=== PATIENT | female | born 1975 | race Caucasian/White ===

== ENCOUNTER 2017-07-08 01:25 | Inpatient (IN) | payer BC ==
[~2017-07-08] VITALS: Ht 160 cm; Wt 81.6 kg
[2017-07-08 04:00] VITALS: BP 134/78
[2017-07-08] MEDS ORDERED: Morphine Sulfate 4mg/ml Inj IVP PRN (05:30)
[2017-07-08] MEDS: D5 1/2NS w/KCl 20mEq 1,000 ML IV SCH ×2 (06:19→18:28)
[2017-07-08] MEDS: Morphine Sulfate 4mg/ml Inj IVP PRN ×2 (06:21→18:14)
[2017-07-08 09:00] VITALS: BP 99/72
--- NOTE | 2017-07-08 11:50 | History & Physical ---
History and Physical History & Physicial Dicated for Dr Cortes no. [id number]. Josef Neville MD July 08, 2017 11:50
[2017-07-08 17:32] LABS: APPEARANCE,URINE CLEAR; BILIRUBIN, URINE NEGATIVE (NEGATIVE); COLOR,URINE PALE YELLOW; GLUCOSE, URINE (UA) NEGATIVE (NEGATIVE); KETONES,URINE NEGATIVE (NEGATIVE); LEUKOCYTE ESTERASE ,URINE NEGATIVE (NEGATIVE); NITRITE,URINE NEGATIVE (NEGATIVE); PH,URINE 6.5 (4.5-8.0); PROTEIN,URINE NEGATIVE (NEGATIVE); UROBILINOGEN,URINE NORMAL MG/DL (0.0-1.0)
--- NOTE | 2017-07-08 18:00 | History and Physical Report ---
DATE OF ADMISSION: 07/08/2017 CHIEF COMPLAINT: The patient is a 41-year-old white female presents with complaint of left flank pain. HISTORY OF PRESENT ILLNESS: Began on 06/24/2017. The patient noticed blood in her urine. The patient was then traveling for 1 week. The patient states she began to experience left flank pain on Saturday. The patient also had subjective fever and chills. The patient presented to [facility] emergency room on Saturday07/07/2017. The CT scan revealed a 4 mm calculus in the left distal ureter. The patient was started on ciprofloxacin at [place]. The patient is transferred to [facility] for insurance purposes. The patient is admitted with left flank pain and left renal calculus to rule out pyelonephritis. REVIEW OF SYSTEMS: CONSTITUTIONAL: The patient denies weight loss or gain. The patient complains of subjective fever and chills as above. HEENT: The patient denies ear or throat pain. The patient denies headache. CARDIOVASCULAR: The patient denies palpitations or chest pain. CHEST: The patient denies wheeze or shortness of breath. ABDOMEN: The patient complains of left flank pain as above. The patient complains of subjective nausea without vomiting. The patient denies diarrhea or constipation. GENITOURINARY: The patient complains of hematuria as above. The patient denies dysuria. NEUROMUSCULAR: The patient denies seizures or generalized weakness. PAST MEDICAL HISTORY: The patient denies. Last menstrual period stated to be 07/05/2017. PAST SURGICAL HISTORY: The patient denies. CURRENT MEDICATIONS: The patient denies. ALLERGIES: No known drug allergies. SOCIAL HISTORY: The patient is single and works in programming. The patient admits to occasional tobacco use. The patient denies alcohol use of one to two times weekly. The patient denies drug abuse. PHYSICAL EXAMINATION: VITAL SIGNS: Temperature 97.7 degrees, respirations 21, pulse 82, blood pressure 134/78. GENERAL: The patient is well-developed and well-nourished white female, in no apparent distress. HEENT: Eyes, pupils are equal and responsive to light and accommodation. Extraocular movements are intact. NECK: Supple. No lymphadenopathy. CHEST: Lungs are clear to auscultation bilaterally without wheezes or rales. CARDIOVASCULAR: Regular rhythm and rate. S1, S2 normal without murmurs, rubs, or gallops. ABDOMEN: Soft, nontender, and nondistended with positive bowel sounds. No evidence of hepatosplenomegaly. Currently, no rebound or guarding noted. EXTREMITIES: Negative for clubbing, cyanosis, or edema. RECTAL: Refused. GENITAL: Refused. NEUROLOGICAL: Cranial II through XII grossly intact without focal deficits. Motor strength is 5/5 bilaterally. Deep tendon reflexes are 2+, plantar. LABORATORY STUDIES: WBC 15.1, hemoglobin 12.9, hematocrit 37.6, platelets 343,000. Sodium 136, potassium 3.9, chloride 103, CO2 26, BUN 13, creatinine 0.71, glucose 102. A CT scan of the abdomen and pelvis revealed a 4 mm stone located in the distal left ureter. ASSESSMENT: This is a 41-year-old white female: 1. Left flank pain. 2. Left distal ureteral calculus. 3. Hematuria. 4. Fever. TREATMENT: Left flank pain/left ureteral calculus (distal). Urology consultation has been obtained with Dr. Chato Gay. The patient will be strained. Hopefully, the stone will pass on its own, as the stone is only 4 mm in diameter. We will follow recommendations of Urology. The patient may require cystoscopy and ureteroscopy. Josef Neville M.D. DR: ARPAN JOB#: [id number] CC:
[2017-07-08 20:30] VITALS: BP 116/75
[2017-07-08] MEDS ORDERED: Tamsulosin 0.4mg cap ORAL SCH (21:00)
--- NOTE | 2017-07-08 22:30 | Consultation ---
DATE OF CONSULTATION: 07/08/2017 CONSULTING PHYSICIAN: Chato Gay M.D. REFERRING PHYSICIAN: Frank Cortes M.D. REASON FOR CONSULTATION: For evaluation of renal colic. HISTORY OF PRESENT ILLNESS: This is a pleasant 41-year-old female. She experienced acute onset of left flank pain and she was taken to the [place] emergency room. She had a workup over there including laboratory studies, UA, and a CT scan, and there was a finding of a 4 mm stone of the left distal ureter. There was a mention of left ureterectasis without significant hydro. The patient was then transferred here for admission. Currently, she feels fair. She is still requiring some narcotic pain medications, but she states that her pain is improving. PAST MEDICAL HISTORY: Essentially unremarkable. OUTPATIENT MEDICATIONS: None. ALLERGIES: No known drug allergies. SOCIAL HISTORY: She is an occasional smoker. FAMILY HISTORY: Noncontributory. REVIEW OF SYSTEMS: As above. PHYSICAL EXAMINATION: GENERAL: A well-developed and well-nourished female, in no acute distress. VITAL SIGNS: Temperature is 97.9, blood pressure is 99/72, pulse 69, respirations 18. HEENT: Normocephalic. NECK: Supple. ABDOMEN: Soft. BACK: There is no CVA tenderness. EXTREMITIES: Without clubbing or cyanosis. LABORATORY DATA: The laboratories at [place] were reviewed. Her BUN is 13 and creatinine 0.71. Her UA was nitrite negative. There was greater than 25 wbc's and then 26 to 50 rbc's. Her repeat UA here earlier today was negative. DIAGNOSTIC IMAGING STUDIES: The patient had a CT scan and the report stated a 4 mm stone in the distal left ureter and moderate left ureterectasis. No significant hydro. IMPRESSION: 1. Left ureteral calculus. 2. Colic. 3. Ureterectasis, possible hydro. 4. Urinary frequency by history. 5. Hematuria. 6. Pyuria. PLAN AND DISCUSSION: As noted above, the patient did have left flank pain presumably secondary to renal colic. Her pain is slowly improving. I did talk to the patient about treatment options and at this, we will do a trial of passage with Flomax as ordered. We will strain her urine and she will be monitored clinically. If she has continued flank pain then she may need to have a procedure to extract the stone. Otherwise, she may be able to pass the stone spontaneously. Thank you Dr. Cortes for asking me to participate in this consultation. Chato Gay M.D. DR: DULCE JOB#: [id number] CC:
[2017-07-09] VITALS: BP 98/64
[2017-07-09 06:30] VITALS: BP 99/60
[2017-07-09 07:25] LABS: BASOPHILS % (AUTO) 1.4 % (0.0-2.0); EOSINOPHILS % (AUTO) 2.8 % (0.0-3.0); HEMATOCRIT 35.6 % (37.0-47.0); HEMOGLOBIN 12.1 G/DL (12.0-16.0); LYMPHOCYTES % (AUTO) 30.6 % (20.0-45.0); MEAN CORPUSCULAR VOLUME 90 FL (80-99); MONOCYTES % (AUTO) 10.6 % (1.0-10.0); NEUTROPHILS % (AUTO) 54.5 % (45.0-75.0); PLATELET COUNT 328 K/UL (150-450); RED BLOOD COUNT 3.97 M/UL (4.20-5.40); RED CELL DISTRIBUTION WIDTH 11.4 % (11.6-14.8); WHITE BLOOD COUNT 6.8 K/UL (4.8-10.8)
[2017-07-09 07:43] LABS: ANION GAP 9 mmol/L (5-15); BLOOD UREA NITROGEN 6 mg/dL (7-18); CALCIUM 9.6 MG/DL (8.5-10.1); CARBON DIOXIDE 23 MMOL/L (21-32); CHLORIDE 106 MMOL/L (98-107); CREATININE 0.8 MG/DL (0.55-1.30); PHOSPHORUS 3.2 MG/DL (2.5-4.9); POTASSIUM 4.1 MMOL/L (3.5-5.1); SODIUM 138 MMOL/L (136-145)
[2017-07-09 08:18] LABS: INR 0.9 (0.9-1.1)
[2017-07-09] MEDS: D5 1/2NS w/KCl 20mEq 1,000 ML IV SCH (08:22)
--- NOTE | 2017-07-09 10:10 | Urology Progress Note ---
Assessment/Plan Assessment/Plan 1. Left ureteral calculus. 2. Colic. 3. Ureterectasis, possible hydro. 4. Urinary frequency by history. 5. Hematuria. 6. Pyuria. pain better stone poss passed? d/w pt and she wants to go home rec to cont straining urine with outpt f/u d/w Dr. Neville Subjective Allergies: Coded Allergies: No Known Allergies (Unverified , 07/08/17) Subjective feels fair, no sig pain, wants to go home Objective Last 24 Hour Vital Signs Date Time Temp Pulse Resp B/P (MAP) Pulse Ox O2 Delivery O2 Flow Rate FiO2 07/09/17 06:30 98.1 80 19 99/60 98 Room Air 98.1 07/09/17 00:00 97.9 84 17 98/64 97 Room Air 97.9 07/08/17 20:30 97.9 76 19 116/75 98 Room Air 97.9 Intake and Output 07/08/17 07/09/17 19:00 07:00 Intake Total 2025 ml Output Total 1200 ml 1300 ml Balance -1200 ml 725 ml Intake Oral 1100 ml IV Total 925 ml Output Urine Total 1200 ml 1300 ml # Voids 3 4 Microbiology Date/Time Source Procedure Growth Status 07/08/17 15:00 Urine,Clean Catch Urine Culture - Preliminary NO GROWTH Resulted Current Medications Medications (Trade) Dose Ordered Sig/Umm Route PRN Reason Start Time Stop Time Status Last Admin Dose Admin Acetaminophen (Tylenol) 650 mg Q6H PRN ORAL Mild Pain/Temp > 100.5 07/08/17 05:30 08/07/17 05:29 Dextrose/ Electrolytes 1,000 ml @ 75 mls/hr [id number] IV 07/08/17 05:30 08/07/17 05:29 07/09/17 08:22 Morphine Sulfate (Morphine Sulfate) 2 mg Q4H PRN IVP For Pain(mild/moderate) 07/08/17 05:30 07/15/17 05:29 Morphine Sulfate (Morphine Sulfate) 4 mg Q4H PRN IVP For Pain (severe) 07/08/17 05:30 07/15/17 05:29 07/08/17 18:14 Ondansetron HCl (Zofran) 4 mg Q4H PRN IVP Nausea & Vomiting 07/08/17 05:30 08/07/17 05:29 Tamsulosin HCl (Flomax) 0.4 mg BEDTIME ORAL 07/08/17 21:00 08/07/17 20:59 07/08/17 20:57 Laboratory Tests 07/08/17 15:00: Urine Color Pale yellow, Urine Appearance Clear, Urine pH 6.5, Urine Specific [place] 1.005, Urine Protein Negative, Urine Glucose (UA) Negative, Urine Ketones Negative, Urine Occult Blood Negative, Urine Nitrite Negative, Urine Bilirubin Negative, Urine Urobilinogen Normal, Urine Leukocyte Esterase Negative 07/09/17 06:30: White Blood Count 6.8, Red Blood Count 3.97L, Hemoglobin 12.1, Hematocrit 35.6L , Mean Corpuscular Volume 90, Mean Corpuscular Hemoglobin 30.5, Mean Corpuscular Hemoglobin Concent 34.0, Red Cell Distribution Width 11.4L, Platelet Count 328, Mean Platelet Volume 8.2, Neutrophils (%) (Auto) 54.5, Lymphocytes (%) (Auto) 30.6, Monocytes (%) (Auto) 10.6H, Eosinophils (%) (Auto) 2.8, Basophils (%) (Auto) 1.4, Prothrombin Time 9.3, Prothromb Time International Ratio 0.9, Activated Partial Thromboplast Time 29, Sodium Level 138, Potassium Level 4.1, Chloride Level 106, Carbon Dioxide Level 23, Anion Gap 9, Blood Urea Nitrogen 6L, Creatinine 0.8, Estimat Glomerular Filtration Rate > 60, Glucose Level 99, Calcium Level 9.6, Phosphorus Level 3.2, Magnesium Level 2.1 Height (Feet): 5 Height (Inches): 3.00 Weight (Pounds): 180 GERTRUDE MCCORD July 09, 2017 10:10
[2017-07-09] MEDS ORDERED: IBUPROFEN600 MG ORAL (12:35)
--- NOTE | 2017-07-09 21:28 | Internal Med Progress Note ---
Subjective Physician Name Frank Cortes Attending Physician Frank Cortes MD Allergies: Coded Allergies: No Known Allergies (Unverified , 07/08/17) Subjective feeling better Objective Last Vital Signs Date Time Temp Pulse Resp B/P (MAP) Pulse Ox O2 Delivery O2 Flow Rate FiO2 07/09/17 06:30 98.1 80 19 99/60 98 Room Air 98.1 Laboratory Tests Test 07/09/17 06:30 White Blood Count 6.8 K/UL (4.8-10.8) Red Blood Count 3.97 M/UL (4.20-5.40) L Hemoglobin 12.1 G/DL (12.0-16.0) Hematocrit 35.6 % (37.0-47.0) L Mean Corpuscular Volume 90 FL (80-99) Mean Corpuscular Hemoglobin 30.5 PG (27.0-31.0) Mean Corpuscular Hemoglobin Concent 34.0 G/DL (32.0-36.0) Red Cell Distribution Width 11.4 % (11.6-14.8) L Platelet Count 328 K/UL (150-450) Mean Platelet Volume 8.2 FL (6.5-10.1) Neutrophils (%) (Auto) 54.5 % (45.0-75.0) Lymphocytes (%) (Auto) 30.6 % (20.0-45.0) Monocytes (%) (Auto) 10.6 % (1.0-10.0) H Eosinophils (%) (Auto) 2.8 % (0.0-3.0) Basophils (%) (Auto) 1.4 % (0.0-2.0) Prothrombin Time 9.3 SEC (9.30-11.50) Prothromb Time International Ratio 0.9 (0.9-1.1) Activated Partial Thromboplast Time 29 SEC (23-33) Sodium Level 138 MMOL/L (136-145) Potassium Level 4.1 MMOL/L (3.5-5.1) Chloride Level 106 MMOL/L (98-107) Carbon Dioxide Level 23 MMOL/L (21-32) Anion Gap 9 mmol/L (5-15) Blood Urea Nitrogen 6 mg/dL (7-18) L Creatinine 0.8 MG/DL (0.55-1.30) Estimat Glomerular Filtration Rate > 60 mL/min (>60) Glucose Level 99 MG/DL (74-106) Calcium Level 9.6 MG/DL (8.5-10.1) Phosphorus Level 3.2 MG/DL (2.5-4.9) Magnesium Level 2.1 MG/DL (1.8-2.4) Microbiology Date/Time Source Procedure Growth Status 07/08/17 15:00 Urine,Clean Catch Urine Culture - Preliminary NO GROWTH Resulted Intake and Output 07/08/17 07/09/17 19:00 07:00 Intake Total 2025 ml Output Total 1200 ml 1300 ml Balance -1200 ml 725 ml Intake Oral 1100 ml IV Total 925 ml Output Urine Total 1200 ml 1300 ml # Voids 3 4 Assessment/Plan Assessment/Plan 1. Left ureteral calculus. 2. Colic. 3. Ureterectasis, possible hydro. 4. Urinary frequency by history. 5. Hematuria. 6. Pyuria. Plan: [place] home today F/U with Frank Davis MD July 09, 2017 21:28
--- NOTE | 2017-07-11 11:15 | Discharge Summary ---
Discharge Summary Discharge Summary _ DATE OF ADMISSION: 07/08/2017 DATE OF DISCHARGE: 07/09/2017 REASON FOR ADMISSION: 41 years old female without significant past medical history presented with complaint of left flank pain. Patient noted blood in her urine. Patient reported subjective fever and chills. Patient initially presented to [facility] emergency department. CT scan revealed 4 mm calculus in the left distal ureter, left ureterectasis. WBC 15.1. Afebrile. Patient started on antibiotic and transferred to [facility] for insurance purposes. Patient was admitted with diagnosis of left renal colic with left distal ureteral calculus, left ureterectasis. CONSULTANTS: urologist [facility] COURSE: Patient admitted to medical surgical floor. Patient started on generous IV hydration. All urine was strained. Pain management was provided. Urine culture revealed mixed gram-positive organisms. Urologist consult was requested. Urologist seen and evaluated the patient. Treatment options were discussed with the patient. Patient opted for trial of passage of stone with Flomax., which started. Patient opted for discharge home to strain the urine. Patient will need clinical monitoring. Patient to follow-up with the urologist as outpatient. If patient continue to have flank pain, she may need to have a procedure to extract the stone . Urine culture revealed mixed gram positive organisms, with colony count less than 10,000. No fever. no leucocytosis. Stable renal parameters. Due to the rapid and unexpected improvement in patient's condition, the patient was discharged in one day FINAL DIAGNOSES: Left distal ureteral calculus Left renal colic Left ureterectasis, Urinary frequency, by history Hematuria Pyuria DISCHARGE MEDICATIONS: See Medication Reconciliation list. DISCHARGE INSTRUCTIONS: Patient was discharged home, follow-up with urologist as outpatient. Patient was instructed to strain all urine. If patient continue having flank flank recommended to go to nearest emergency department . I have been assigned to dictate discharge summary for this account. I was not involved in the patient's management. Nandini Kinney NP July 11, 2017 11:15
== END 2017-07-09 12:54 | disposition home or self-care (01) | DRG 694 ==
LOC: 4W 04:16
DX: N20.1 Calculus of ureter (principal); N13.4 Hydroureter; R31.9 Hematuria, unspecified
CPT/HCPCS: 36415; 80048; 81003; 83735; 84100; 85025; 85610; 85730; 87086